=== PATIENT | female | born 1990 | race Caucasian/White ===

== ENCOUNTER 2020-11-09 17:30 | Emergency (ER) | payer BC ==
[~2020-11-09] VITALS: Ht 160 cm; Wt 58.8 kg
[2020-11-09] MEDS ORDERED: diphenhydrAMINE 50 mg/ml inj IV ONE (19:15)
[2020-11-09] MEDS ORDERED: ondansetron/PF 4mg/2ml inj IV ONE (19:15)
[2020-11-09] MEDS ORDERED: normal saline 1000ML IV soln IVB ONE (19:15)
[2020-11-09] MEDS ORDERED: methylPREDNISolone sod succ 125mg/2ml vial IV ONE (19:15)
[2020-11-09 20:08] LABS: BASOPHILS % (AUTO) 0.3 % (0-1); EOSINOPHILS % (AUTO) 0.3 % (0-6); HEMATOCRIT 40.1 % (35.0-45.0); HEMOGLOBIN 13.8 g/dl (12.0-16.0); LYMPHOCYTES # (AUTO) 1.4 X10'3 (1.1-4.8); MEAN CORPUSCULAR HEMOGLOBIN 32.8 PG (27.0-31.0); MEAN CORPUSCULAR HGB CONC 34.5 g/dL (33.0-36.5); MEAN CORPUSCULAR VOLUME 95.1 FL (78-98); MEAN PLATELET VOLUME 7.5 FL (7.4-10.4); MONOCYTES # (AUTO) 0.6 X10'3 (0-0.9); MONOCYTES % (AUTO) 5.5 % (2-12); NEUTROPHILS # (AUTO) 9.7 X10'3 (1.8-7.7); NEUTROPHILS % (AUTO) 81.9 % (42-75); PLATELET COUNT 283 X10'3 (140-440); RED BLOOD COUNT 4.22 X10'6 (4.20-5.60); RED CELL DISTRIBUTION WIDTH 13.2 % (11.5-14.5); WHITE BLOOD COUNT 11.8 X10'3 (4.5-11.0)
[2020-11-09] MEDS ORDERED: ondansetron 4mg rapidly disintigrating tab PO ONE (20:10)
[2020-11-09] MEDS ORDERED: diphenhydrAMINE 25mg capsule PO ONE (20:10)
[2020-11-09] MEDS ORDERED: predniSONE 20 mg tablet PO ONE (20:10)
--- NOTE | 2020-11-09 20:12 | NUR ---
pt did not want iv, asked if she could just have water. notified, med orders changed to p.o.
[2020-11-09 20:25] VITALS: BP 118/77
[2020-11-09 20:37] LABS: ALANINE AMINOTRANSFERASE 19 U/L (12-78); ALBUMIN/GLOBULIN RATIO 1.3 (1.1-1.5); ALKALINE PHOSPHATASE 45 IU/L (46-116); ANION GAP 14 (8-16); ASPARTATE AMINO TRANSFERASE 23 U/L (10-37); BILIRUBIN,TOTAL 0.4 MG/DL (0.1-1.0); BLOOD UREA NITROGEN 10 MG/DL (7-18); BUN/CREATININE RATIO 16.4 (6.6-38.0); CALCIUM 8.2 MG/DL (8.5-10.1); CHLORIDE 104 MMOL/L (99-107); CREATININE 0.61 MG/DL (0.40-0.90); GLUCOSE 105 MG/DL (70-104); POTASSIUM 3.4 MMOL/L (3.5-5.1); SODIUM 141 MMOL/L (135-145); TOTAL CARBON DIOXIDE 22.9 MMOL/L (24-32); TOTAL PROTEIN 7.2 G/DL (6.4-8.2); eGFR > 90 ML/MIN
[2020-11-09] MEDS ORDERED: PRED20TA PO (20:45)
== END 2020-11-09 21:08 | disposition home or self-care (01) ==
LOC: ER 17:30
DX: T78.40XA Allergy, unspecified, initial encounter (principal); R11.0 Nausea; R68.2 Dry mouth, unspecified; Z79.899 Other long term (current) drug therapy; X58.XXXA Exposure to other specified factors, initial encounter
CPT/HCPCS: 36415; 80053; 85025; 99284; J7512; Q0163

== ENCOUNTER 2020-12-10 13:49 | Emergency (ER) | payer BC ==
[~2020-12-10] VITALS: Ht 160 cm; Wt 58.0 kg
[2020-12-10 14:06] VITALS: BP 132/85
== END 2020-12-10 16:44 | disposition left against medical advice (07) ==
LOC: ER 13:50
DX: R21 Rash and other nonspecific skin eruption (principal); Z53.21 Procedure and treatment not carried out due to patient leaving prior to being seen by health care provider